=== PATIENT | male | born 1965 | race Caucasian/White ===

== ENCOUNTER 2022-08-17 06:05 | Outpatient (REF) | payer OTHER, SELFPAY ==
[2022-08-17 11:18] LABS: Basophils Absolute Auto 0.1 X10*3/uL (0.0-0.2); Basophils Percent Auto 0.7 % (0-2); Eosinophils Absolute Auto 0.4 X10*3/uL (0.0-0.4); Eosinophils Percent Auto 3.4 % (0-4); Hematocrit 45.9 % (42.0-52.0); Hemoglobin 14.9 g/dl (14.0-18.0); Imm Gran Abs Auto 0.03 X10*3/uL (0.00-0.03); Imm Gran Pct Auto 0.2 % (0.0-0.4); Lymphocytes Absolute Auto 4.3 X10*3/uL (1.2-4.9); Lymphocytes Percent Auto 35.4 % (20-40); MANUAL DIFF FLAG NO; Mean Corpuscular HGB Conc 32.5 g/dl (31.0-36.0); Mean Corpuscular Hemoglobin 29.3 pg (27.0-33.0); Mean Corpuscular Volume 90.4 fL (80.0-98.0); Mean Platelet Volume 10.2 fL (9.4-12.4); Monocytes Absolute Auto 1.2 X10*3/uL (0.1-1.2); Monocytes Percent Auto 9.5 % (2-11); Neutrophils Absolute Auto 6.2 x10*3/uL (2.0-8.3); Neutrophils Percent Auto 50.8 % (45-73); Platelet Count 512 X10*3/uL (160-400); Red Blood Count 5.08 X10*6/uL (4.60-5.80); Red Cell Distribution Width 13.6 % (11.0-16.0); White Blood Count 12.2 X10*3/uL (4.8-10.8)
[2022-08-17 12:00] LABS: Erythrocyte Sedimentation Rate 5 MM/HR (0-15)
[2022-08-17 13:19] LABS: Alanine Aminotransferase 19 U/L (0-40); Alkaline Phosphatase 64 U/L (39-117); Anion Gap 14 (12-20); Aspartate Amino Transferase 16 U/L (5-37); Bilirubin Total 0.4 mg/dL (0.0-1.0); Blood Urea Nitrogen 15 mg/dL (9-16); Calcium 9.6 mg/dL (8.4-10.2); Carbon Dioxide 27 mmol/L (22-29); Chloride 103 mmol/L (96-108); Cholesterol 211 mg/dL; Estimated Glomerular Filt Rate > 60; Glucose Random 158 mg/dL (60-115); HDL Cholesterol 49 mg/dL; LDL Cholesterol Calculated 121 mg/dl; Potassium 4.6 mmol/L (3.3-5.1); Rheumatoid Factor < 13.0 IU/mL (<15.0); Sodium 139 mmol/L (135-145); Total Protein 6.7 g/dL (6.5-8.0); Triglycerides 207 mg/dL
[2022-08-17 13:21] LABS: Prostate Specific Antigen 0.37 ng/mL (<0.05-4.0)
== END 2022-08-17 06:06 | disposition home or self-care (01) ==
LOC: HO.HMGCLDS 06:05
PROVIDERS: PCP Internal Medicine Medical Oncology; Visit Provider Internal Medicine Medical Oncology
DX: M17.11 Unilateral primary osteoarthritis, right knee (principal); N52.9 Male erectile dysfunction, unspecified; E66.3 Overweight; D47.3 Essential (hemorrhagic) thrombocythemia; N40.1 Benign prostatic hyperplasia with lower urinary tract symptoms; Z12.5 Encounter for screening for malignant neoplasm of prostate
CPT/HCPCS: 36415; 80053; 80061; 84153; 85025; 85652; 86431

== ENCOUNTER 2023-08-04 07:54 | Outpatient (REF) | payer OTHER, SELFPAY ==
[2023-08-04 11:06] LABS: MANUAL DIFF FLAG NO
[2023-08-04 11:16] LABS: Basophils Absolute Auto 0.1 X10*3/uL (0.0-0.2); Basophils Percent Auto 0.7 % (0-2); Eosinophils Absolute Auto 0.1 X10*3/uL (0.0-0.4); Eosinophils Percent Auto 1.4 % (0-4); Hematocrit 46.7 % (42.0-52.0); Hemoglobin 15.3 g/dl (14.0-18.0); Imm Gran Abs Auto 0.01 X10*3/uL (0.00-0.03); Imm Gran Pct Auto 0.1 % (0.0-0.4); Lymphocytes Absolute Auto 4.3 X10*3/uL (1.2-4.9); Lymphocytes Percent Auto 51.7 % (20-40); Mean Corpuscular HGB Conc 32.8 g/dl (31.0-36.0); Mean Corpuscular Volume 88.4 fL (80.0-98.0); Mean Platelet Volume 10.1 fL (9.4-12.4); Monocytes Absolute Auto 1.5 X10*3/uL (0.1-1.2); Monocytes Percent Auto 17.5 % (2-11); Neutrophils Absolute Auto 2.4 x10*3/uL (2.0-8.3); Neutrophils Percent Auto 28.6 % (45-73); Platelet Count 471 X10*3/uL (160-400); Red Blood Count 5.28 X10*6/uL (4.60-5.80); White Blood Count 8.3 X10*3/uL (4.8-10.8)
[2023-08-04 11:44] LABS: Alanine Aminotransferase 19 U/L (0-40); Albumin Level 3.9 g/dL (3.5-5.0); Alkaline Phosphatase 60 U/L (39-117); Anion Gap 12 (12-20); Aspartate Amino Transferase 19 U/L (5-37); Bilirubin Total 0.2 mg/dL (0.0-1.0); Blood Urea Nitrogen 12 mg/dL (9-16); Calcium 9.2 mg/dL (8.4-10.2); Carbon Dioxide 24 mmol/L (22-29); Chloride 106 mmol/L (96-108); Cholesterol 198 mg/dL (<200); Estimated Glomerular Filt Rate > 60; Glucose Fasting 160 mg/dL (60-99); HDL Cholesterol 46 mg/dL (>40); LDL Cholesterol Calculated 118 mg/dL (<100); Potassium 4.1 mmol/L (3.3-5.1); Sodium 138 mmol/L (135-145); Total Protein 6.9 g/dL (6.5-8.0); Triglycerides 173 mg/dL (<150)
[2023-08-04 12:10] LABS: Prostate Specific Antigen 0.34 ng/mL (<0.05-4.0)
== END 2023-08-04 07:55 | disposition home or self-care (01) ==
LOC: HO.HMGCLDS 07:54
PROVIDERS: PCP Internal Medicine Medical Oncology; Visit Provider Internal Medicine Medical Oncology
DX: Z12.5 Encounter for screening for malignant neoplasm of prostate (principal); E66.3 Overweight; N40.1 Benign prostatic hyperplasia with lower urinary tract symptoms
CPT/HCPCS: 36415; 80053; 80061; 84153; 85025

== ENCOUNTER 2023-08-15 07:58 | Outpatient (AMB) | payer OTHER, SELFPAY ==
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
[2023-08-15 08:14] VITALS: BMI 28.7
== END 2023-08-15 09:11 | disposition home or self-care (01) ==
PROVIDERS: PCP Internal Medicine Medical Oncology; Visit Provider Physician Assistant
DX: M21.161 Varus deformity, not elsewhere classified, right knee (principal); M17.11 Unilateral primary osteoarthritis, right knee
CPT/HCPCS: 99203

== ENCOUNTER 2023-08-15 14:41 | Outpatient (REF) | payer OTHER, SELFPAY ==
--- NOTE | ~2023-08-15 | XR_ITS ---
EXAMINATION: AP upright of both knees. Patellofemoral and lateral view of the right knee CLINICAL INFORMATION: Pain in the knee. COMPARISON: X-ray of the left femur October 2019 TECHNIQUE: AP upright of both knees and lateral and patella view of the right knee FINDINGS: Right knee: Genu varus. Severe joint space narrowing medial compartment with marginal osteophytes. Lateral compartment normal. Patellofemoral compartment mild osteoarthritis manifested by marginal osteophytes. No effusion. Surrounding bone and soft tissues unremarkable. Left knee Limited AP upright: Mild genu varus. Joint space narrowing marginal osteophytes indicative of mild to moderate osteoarthritis. Lateral compartment unremarkable. Incidental note made of distal end of the femoral josemanuel noted previously unchanged. XR/XR knee RT 2V IMPRESSION: RIGHT KNEE: Advanced osteoarthritis with degenerative changes severe in the medial compartment. LEFT KNEE Limited: Osteoarthritis with degenerative changes mild to moderate in the medial compartment.
--- NOTE | ~2023-08-15 | XR_ITS ---
EXAMINATION: AP upright of both knees. Patellofemoral and lateral view of the right knee CLINICAL INFORMATION: Pain in the knee. COMPARISON: X-ray of the left femur October 2019 TECHNIQUE: AP upright of both knees and lateral and patella view of the right knee FINDINGS: Right knee: Genu varus. Severe joint space narrowing medial compartment with marginal osteophytes. Lateral compartment normal. Patellofemoral compartment mild osteoarthritis manifested by marginal osteophytes. No effusion. Surrounding bone and soft tissues unremarkable. Left knee Limited AP upright: Mild genu varus. Joint space narrowing marginal osteophytes indicative of mild to moderate osteoarthritis. Lateral compartment unremarkable. Incidental note made of distal end of the femoral josemanuel noted previously unchanged. XR/XR knee standing BI IMPRESSION: RIGHT KNEE: Advanced osteoarthritis with degenerative changes severe in the medial compartment. LEFT KNEE Limited: Osteoarthritis with degenerative changes mild to moderate in the medial compartment.
== END 2023-08-15 14:42 | disposition home or self-care (01) ==
LOC: HO.HOSX 14:41
PROVIDERS: Visit Provider Physician Assistant
DX: M21.161 Varus deformity, not elsewhere classified, right knee (principal); M17.11 Unilateral primary osteoarthritis, right knee; M25.562 Pain in left knee
CPT/HCPCS: 73560; 73565

== ENCOUNTER 2023-08-16 06:05 | Outpatient (REF) | payer OTHER, SELFPAY ==
[2023-08-16 12:02] LABS: Estimated Average Glucose 169 mg/dL; Hemoglobin A1c % 7.5 % (<6.0)
[2023-08-16 12:10] LABS: Glucose Fasting 161 mg/dL (60-99)
[2023-08-16 12:52] LABS: Creatinine Urine 314.45 mg/dL; Microalbum/Creatinine Ratio Ur 4.7 ug/mg cr (<30)
== END 2023-08-16 06:06 | disposition home or self-care (01) ==
LOC: HO.HMGCLDS 06:05
PROVIDERS: PCP Internal Medicine Medical Oncology; Visit Provider Internal Medicine Medical Oncology
DX: R73.9 Hyperglycemia, unspecified (principal)
CPT/HCPCS: 36415; 82043; 82570; 82947; 83036

== ENCOUNTER 2024-02-23 07:01 | Outpatient (REF) | payer OTHER, SELFPAY ==
[2024-02-23 11:21] LABS: MANUAL DIFF FLAG NO
[2024-02-23 11:28] LABS: Basophils Absolute Auto 0.1 X10*3/uL (0.0-0.2); Basophils Percent Auto 0.7 % (0-2); Eosinophils Absolute Auto 0.3 X10*3/uL (0.0-0.4); Eosinophils Percent Auto 3.7 % (0-4); Hematocrit 42.8 % (42.0-52.0); Imm Gran Abs Auto 0.03 X10*3/uL (0.00-0.03); Imm Gran Pct Auto 0.3 % (0.0-0.4); Lymphocytes Absolute Auto 3.8 X10*3/uL (1.2-4.9); Lymphocytes Percent Auto 43.5 % (20-40); Mean Corpuscular HGB Conc 32.7 g/dl (31.0-36.0); Mean Corpuscular Hemoglobin 29.6 pg (27.0-33.0); Mean Corpuscular Volume 90.5 fL (80.0-98.0); Mean Platelet Volume 9.7 fL (9.4-12.4); Monocytes Absolute Auto 0.8 X10*3/uL (0.1-1.2); Monocytes Percent Auto 9.2 % (2-11); Neutrophils Absolute Auto 3.7 x10*3/uL (2.0-8.3); Neutrophils Percent Auto 42.6 % (45-73); Platelet Count 455 X10*3/uL (160-400); Red Blood Count 4.73 X10*6/uL (4.60-5.80); Red Cell Distribution Width 14.6 % (11.0-16.0); White Blood Count 8.7 X10*3/uL (4.8-10.8)
[2024-02-23 11:48] LABS: Alanine Aminotransferase 13 U/L (0-40); Albumin Level 3.9 g/dL (3.5-5.0); Alkaline Phosphatase 50 U/L (39-117); Anion Gap 13 (12-20); Aspartate Amino Transferase 14 U/L (5-37); Bilirubin Total 0.5 mg/dL (0.0-1.0); Blood Urea Nitrogen 15 mg/dL (9-16); Calcium 9.3 mg/dL (8.4-10.2); Carbon Dioxide 22 mmol/L (22-29); Chloride 109 mmol/L (96-108); Cholesterol 147 mg/dL (<200); Estimated Glomerular Filt Rate > 60; Glucose Fasting 112 mg/dL (60-99); HDL Cholesterol 51 mg/dL (>40); LDL Cholesterol Calculated 80 mg/dL (<100); Potassium 4.1 mmol/L (3.3-5.1); Sodium 140 mmol/L (135-145); Total Protein 6.5 g/dL (6.5-8.0); Triglycerides 80 mg/dL (<150)
[2024-02-23 11:54] LABS: Estimated Average Glucose 131 mg/dL; Hemoglobin A1c % 6.2 % (<6.0)
[2024-02-23 12:00] LABS: Creatinine Urine 145.04 mg/dL; Microalbum/Creatinine Ratio Ur 6.2 ug/mg cr (<30)
[2024-02-23 12:47] LABS: Prostate Specific Antigen 0.35 ng/mL (<0.05-4.0)
== END 2024-02-23 07:02 | disposition home or self-care (01) ==
LOC: HO.HMGCLDS 07:01
PROVIDERS: PCP Internal Medicine Medical Oncology; Visit Provider Internal Medicine Medical Oncology
DX: Z00.00 Encounter for general adult medical examination without abnormal findings (principal); E11.9 Type 2 diabetes mellitus without complications; N40.1 Benign prostatic hyperplasia with lower urinary tract symptoms; Z12.5 Encounter for screening for malignant neoplasm of prostate
CPT/HCPCS: 36415; 80053; 80061; 82043; 82570; 83036; 84153; 85025

== ENCOUNTER 2024-09-08 06:19 | Day surgery (SDC) | payer OTHER, SELFPAY ==
[2024-09-04 13:42] VITALS: BMI 25.3
[2024-09-08 06:37] VITALS: BP 121/78; PULSE 90; RESP 18; TEMP 36.9; O2SAT 97; BMI 25.4
[2024-09-08 06:58] LABS: Glucose, Whole Blood 112 mg/dL (60-115)
[2024-09-08] MEDS: Lactated Ringers 1,000 ML 50 ML IVCONT (07:00)
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
[2024-09-08 08:27] VITALS: BP 95/59; PULSE 85; RESP 18; TEMP 36.9; O2SAT 96
--- NOTE | 2024-09-08 08:35 | P.BOP_ITS ---
Brief Operative Note Date of Service: 09/08/24 Pre-op diagnosis: Screening Post-op diagnosis: other (Polyp) Procedure: Colonoscopy to the cecum and TI with bx/removal of polyp Surgeon: Sundar Masters MD Anesthesia: MAC Was an Bench Assembler Operator used for this Procedure?: No Estimated blood loss (mL): 2.0 Pathology: other (A. Polyp at 20cm) Condition: stable Disposition: PACU
[2024-09-08 08:42] VITALS: BP 104/56; PULSE 80; RESP 18; TEMP 36.1; O2SAT 98
--- NOTE | 2024-09-08 09:30 | OP_ITS ---
DATE OF SERVICE: 09/08/2024 SURGEON: Sundar Masters MD INDICATIONS: The patient presents for evaluation of colorectal cancer screening and personal history of tubular adenoma of the colon. Full consent was obtained from him for this, including risks of bleeding and perforation. PREOPERATIVE DIAGNOSIS: POSTOPERATIVE DIAGNOSIS: PROCEDURE PERFORMED: Colonoscopy to the cecum and terminal ileum with biopsy and removal of polyp. ESTIMATED BLOOD LOSS: COMPLICATIONS: ANESTHESIA: Monitored anesthesia care. ASSISTANTS: SPECIMENS: PREOPERATIVE DIAGNOSES: Colorectal cancer screening and personal history of tubular adenoma of the colon. POSTOPERATIVE DIAGNOSES: Colorectal cancer screening and personal history of tubular adenoma of the colon, small colon polyp, diverticulosis, and internal hemorrhoids. DESCRIPTION OF PROCEDURE: The patient was placed in the left lateral decubitus position. The digital rectal exam revealed no abnormalities. The Olympus video pediatric colonoscope was entered into the rectum and advanced easily to the cecum. Once in the cecum, I did identify normal-appearing cecal pouch with appendiceal orifice and a normal-appearing ileocecal valve. The terminal ileum was cannulated and appeared normal. The scope was withdrawn back in the colon. The entire cecum and ileocecal valve appeared normal. The scope was slowly withdrawn assessing all mucosal surfaces carefully. Preparation was excellent. At 20 cm, a flat 3 or 4 mm polyp, which was biopsied and removed with a cold biopsy forceps. I did not visualize any other polyps, colitis, nor angiodysplasia. There was a mild amount of sigmoid diverticulosis. In the rectum, the scope was retroflexed visualizing internal hemorrhoids, but no other pathology. The rectal mucosa appeared normal. The scope was straightened and withdrawn from the patient. He tolerated the procedure well and was returned to the recovery area in stable condition. IMPRESSION: 1. Colon polyp. 2. Diverticulosis. 3. Internal hemorrhoids. PLAN: The results of biopsies will be checked. I would recommend a repeat colonoscopy in 5 years for further surveillance. He will otherwise see me on a p.r.n. basis. Sundar Masters MD RMJade/MONICA / [id number]
== END 2024-09-08 09:10 | disposition home or self-care (01) ==
PROVIDERS: PCP Internal Medicine Medical Oncology; Visit Provider Internal Medicine
PROC: 0DJD8ZZ Inspection of Lower Intestinal Tract, Via Natural or Artificial Opening Endoscopic (ICD-10-PCS; CPT 45378; principal; 2024-09-08 07:30)
DX: Z12.11 Encounter for screening for malignant neoplasm of colon (principal); Z86.0101 Personal history of adenomatous and serrated colon polyps; K63.5 Polyp of colon; K57.30 Diverticulosis of large intestine without perforation or abscess without bleeding; K64.8 Other hemorrhoids; E78.5 Hyperlipidemia, unspecified; E11.9 Type 2 diabetes mellitus without complications; Z90.81 Acquired absence of spleen; Z87.828 Personal history of other (healed) physical injury and trauma; Z79.84 Long term (current) use of oral hypoglycemic drugs; Z79.1 Long term (current) use of non-steroidal anti-inflammatories (NSAID); Z79.899 Other long term (current) drug therapy; F17.210 Nicotine dependence, cigarettes, uncomplicated
CPT/HCPCS: 45380; 82947; 88305; J2003; J2704

== ENCOUNTER 2024-12-12 06:06 | Outpatient (REF) | payer OTHER, SELFPAY ==
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
--- OUTSIDE RECORDS SUMMARY | 2024-12-12 06:10 | XMS_ITS ---
Author Organization Sundar Mahmood III, MD Address [address] [address] Care Team Providers Care Tissue Recovery Technician Name Role Phone Sundar Mahmood Primary Care Provider [phone] REASON FOR VISIT New Refill Request Social History Sex Assigned At : Social History Observation Description Sex Assigned At Male Encounters Encounter Location Date Provider Diagnosis Sundar Mahmood III, MD [address] [place] [address] [place] [address] 12/11/2024 Sundar Mahmood Plan Of Treatment Next Appt Details Provider Name:Sundar Mahmood, 06/10/2025 03:30:00 PM, [address] [place] [address] [place], [address], Provider Name:Sundar Mahmood, 12/09/2025 03:30:00 PM, [address] [place] [address] [place], [address], Progress Notes * BRANDIE ESCALANTEDOB:1964 (59 yo M)Acc No.[id number]:12/11/2024 Patient:?BRANDIE ESCALANTE :1965???Age:59 Y???Sex:Male Address:[address] [place] [address], [phone] * * Date:?
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
--- OUTSIDE RECORDS SUMMARY | 2024-12-12 06:11 | XMS_ITS ---
Author Organization [facility] Address [address] [place] [address] Care Team Providers Care Financial Aid Administrator Name Role Phone Ela RÍOS, Sundar Primary Care Provider Unavailab Sundar Garcia Unavailable [phone] REASON FOR VISIT screening, hx polyps Problems Problem Type SNOMED Code ICD Code Onset Dates Problem Status W/U Status Risk Notes Problem Diverticular disease of colon (647410497) Diverticulosis of large intestine without perforation or abscess without bleeding (K57.30) Active confirmed Encounters Encounter Location Date Provider Diagnosis [facility] [facility] [address] [place], [place] [id number] 09/08/2024 Sundar Masters Colon cancer scree adriel Z12.11 ; Colon polyps K63.5 ; Diverticulosis of large intestine without perforation or abscess without bleeding K57.30 and Other hemorrhoids K64.8 Assessments Encounter Date Diagnosis (ICD Code) Assessment Notes Treatment Notes Treatment Clinical Notes Section Notes 09/08/2024 Colon cancer screening (ICD-10 - Z12.11) 09/08/2024 Colon polyps (ICD-10 - K63.5) 09/08/2024 Diverticulosis of large intestine without perforation or abscess without bleeding (ICD-10 - K57.30) 09/08/2024 Other hemorrhoids (ICD-10 - K64.8) Plan Of Treatment No Information Progress Notes * BRANDIE ESCALANTEDOB:1964 (59 yo M)Acc No.[id number]:09/08/2024 COLON WITH MAC Patient:?BRANDIE ESCALANTE Provider:?Sundar Masters MD :1965???Age:59 Y???Sex:Male Jorge Alberto e:09/08/2024 Address:[address] [place], [place] [id number] Pcp:Sundar Mahmood MD Subjective: * Chief Complaints: * ???1. Screening, hx polyps. * Medical History:? Objective: * Vitals:? Assessment: * Assessment: 1.?Colon cancer screening - Z12.11 (Primary)???2.?Colon polyps - K63.5???3.?Diverticulosis of large intestine without perforation or abscess without bleeding - K57.30???4.?Other hemorrhoids - K64.8??? Plan: * Treatment: * Procedure Codes:?55397 COLON OSCOPY AND BIOPSY, Modifiers: 33 * * The named appointment provid er may or may not be the originator of this progress note, and it is not deemed complete until electronically signed by the appointment provider. Sign off status: Pending * Provider:?Sundar Masters MD Date:? 025 Generated for Kathi parmar/Que/eTransmitting on:?12/12/2024 06:10 AM EDT
[2024-12-12 09:59] LABS: MANUAL DIFF FLAG NO
[2024-12-12 10:08] LABS: Basophils Absolute Auto 0.1 X10*3/uL (0.0-0.2); Basophils Percent Auto 0.8 % (0-2); Eosinophils Absolute Auto 0.5 X10*3/uL (0.0-0.4); Eosinophils Percent Auto 4.7 % (0-4); Hematocrit 43.9 % (42.0-52.0); Hemoglobin 14.2 g/dl (14.0-18.0); Imm Gran Abs Auto 0.02 X10*3/uL (0.00-0.03); Imm Gran Pct Auto 0.2 % (0.0-0.4); Lymphocytes Absolute Auto 3.9 X10*3/uL (1.2-4.9); Lymphocytes Percent Auto 39.4 % (20-40); Mean Corpuscular HGB Conc 32.3 g/dl (31.0-36.0); Mean Corpuscular Hemoglobin 29.1 pg (27.0-33.0); Mean Platelet Volume 9.8 fL (9.4-12.4); Monocytes Absolute Auto 0.7 X10*3/uL (0.1-1.2); Monocytes Percent Auto 7.4 % (2-11); Neutrophils Absolute Auto 4.6 x10*3/uL (2.0-8.3); Neutrophils Percent Auto 47.5 % (45-73); Platelet Count 477 X10*3/uL (160-400); Red Blood Count 4.88 X10*6/uL (4.60-5.80); Red Cell Distribution Width 14.6 % (11.0-16.0); White Blood Count 9.8 X10*3/uL (4.8-10.8)
[2024-12-12 10:18] LABS: Estimated Average Glucose 131 mg/dL; Hemoglobin A1C 164.9307 umol/L; Hemoglobin A1c % 6.2 % (<6.0); Total Hemoglobin (HGBA1C) 3773.1732 umol/L
[2024-12-12 10:36] LABS: Alanine Aminotransferase 14 U/L (0-40); Alkaline Phosphatase 55 U/L (39-117); Anion Gap 9 (12-20); Aspartate Amino Transferase 24 U/L (5-37); Bilirubin Total 0.4 mg/dL (0.0-1.0); Blood Urea Nitrogen 14 mg/dL (9-16); Calcium 9.3 mg/dL (8.4-10.2); Carbon Dioxide 27 mmol/L (22-29); Chloride 104 mmol/L (96-108); Cholesterol 155 mg/dL (<200); Estimated Glomerular Filt Rate > 60; Glucose Fasting 105 mg/dL (60-99); HDL Cholesterol 50 mg/dL (>40); LDL Cholesterol Calculated 85 mg/dL (<100); Sodium 136 mmol/L (135-145); Total Protein 6.7 g/dL (6.5-8.0); Triglycerides 100 mg/dL (<150)
[2024-12-12 10:37] LABS: Prostate Specific Antigen 0.52 ng/mL (<0.05-4.0)
[2024-12-12 10:39] LABS: Creatinine Urine 124.28 mg/dL
== END 2024-12-12 06:07 | disposition home or self-care (01) ==
LOC: HO.HMGCLDS 06:06
PROVIDERS: PCP Internal Medicine Medical Oncology; Visit Provider Internal Medicine Medical Oncology
DX: E11.9 Type 2 diabetes mellitus without complications (principal); Z12.5 Encounter for screening for malignant neoplasm of prostate; E66.3 Overweight; N40.1 Benign prostatic hyperplasia with lower urinary tract symptoms
CPT/HCPCS: 36415; 80053; 80061; 82043; 82570; 83036; 84153; 85025